=== PATIENT | female | born 1985 | race African-American/Black ===

== ENCOUNTER 2017-01-17 19:21 | Emergency (ER) | payer SELFPAY ==
[~2017-01-17 19:21] MED LIST: CLINDAMYCIN HC300 MG PO; COMPAZINE; FLORASTOR 33 MG1 CAP PO; PRENATAL VITAMI1 T10 PO; PRILOSEC; PRILOSEC40 MG PO
--- NOTE | 2017-01-17 19:45 | NUR ---
PATIENT LEFT WITHOUT BEING SEEN BY DR. GRAY. NO FURTHER CARE PROVIDED FOR PATIENT.
== END 2017-01-17 19:45 | disposition left against medical advice (07) ==
LOC: MED 19:21
DX: M79.89 Other specified soft tissue disorders (principal); Z53.21 Procedure and treatment not carried out due to patient leaving prior to being seen by health care provider

== ENCOUNTER 2017-04-30 09:09 | Emergency (ER) | payer OTHER ==
[~2017-04-30] VITALS: Ht 160 cm; Wt 50.1 kg
[~2017-04-30 09:09] MED LIST changes: -CLINDAMYCIN HC300 MG PO; -COMPAZINE; -FLORASTOR 33 MG1 CAP PO; +OMEP40EC1 PO; +PREN-385 PO; -PRENATAL VITAMI1 T10 PO; -PRILOSEC; -PRILOSEC40 MG PO
[2017-04-30 09:15] VITALS: BP 143/91
--- NOTE | 2017-04-30 09:20 | NUR ---
Patient ambulated to bed 7 with family. RN evaluating patient at bedside.
--- NOTE | 2017-04-30 09:24 | NUR ---
Dr. Walker evaluating patient at bedside.
[2017-04-30] MEDS ORDERED: MORPHINE SULFATE 2 MG/ML SYR IVP ONE (09:30)
[2017-04-30] MEDS ORDERED: ONDANSETRON 4 MG/2 ML VIAL IVP ONE (09:35)
[2017-04-30] MEDS ORDERED: LIDOCAINE VISCOUS 2% 20 ML UDC PO ONE (09:35)
[2017-04-30] MEDS ORDERED: DICYCLOMINE HCL LIQUID 10 MG/5 ML UDC PO ONE (09:35)
[2017-04-30] MEDS ORDERED: ALUMINUM HYD/MAG/SIMETHICONE 30 ML UDC PO ONE (09:35)
[2017-04-30 10:00] LABS: BASOPHILS # (AUTO) 0.2 K/uL (0.00-0.22); BASOPHILS % (AUTO) 2.2 % (0.0-2.0); EOSINOPHILS # (AUTO) 0.1 K/uL (0-0.4); EOSINOPHILS % (AUTO) 0.9 % (0.0-4.0); HEMATOCRIT 43.3 % (36-48); HEMOGLOBIN 14.4 g/dL (12.0-16.0); LYMPHOCYTES # (AUTO) 1.7 K/uL (2.5-16.5); MEAN CORPUSCULAR HEMOGLOBIN 32 pg (27-31); MEAN CORPUSCULAR HGB CONC 33 g/dL (33-37); MEAN CORPUSCULAR VOLUME 95 fL (80-94); MONOCYTES # (AUTO) 0.9 K/uL (0.8-1.0); MONOCYTES % (AUTO) 8.3 % (1.7-9.3); NEUTROPHILS # (AUTO) 8.1 K/uL (1.8-7.7); NEUTROPHILS % (AUTO) 73.6 % (42.2-75.2); PLATELET COUNT (AUTO) 133 K/uL (140-450); RED BLOOD CELL COUNT(AUTO) 4.58 MIL/uL (4.20-5.40); RED CELL DISTRIBUTION WIDTH 12.7 % (11.6-13.7)
--- NOTE | 2017-04-30 10:05 | NUR ---
Assumed care of patient; Patient BIB self c/o generalized abd pain x 4 days with n/v; Pt is A&O x 4, PERRLA; LS ARE CLEAR BILATERAL; RR ARE EVEN AND UNLABORED; NO ACUTE RESP DISTRESS NOTED; ABD IS SOFT AND TENDER TO ALL QUADRANTS; PT ALSO C/O N/V; PT DENIES ANY BLOOD IN EMESIS, THAT COLOR IS "WHAT I ATE OR CLEAR"; PT DENIES DIARRHEA; PT DENIES ANY URINARY COMPLAINTS; HOB POSITIONED TO COMFORT; PT PROVIDED WITH WARM BLANKET; SIGNIFICANT OTHER BY BEDSIDE; AWAITING LAB RESULTS; ALL NEEDS ADDRESSED AT THIS TIME; WILL CONTINUE TO MONITOR
--- NOTE | 2017-04-30 10:05 | NUR ---
PATIENT RESTLESS; CRYING; GUARDING STOMACH; MD AWARE; PAIN MEDS ORDERED
--- NOTE | 2017-04-30 10:06 | NUR ---
Pt requesting more pain medication prior to being taken to CT scan. Dr. Walker made aware.
[2017-04-30 10:09] LABS: APPEARANCE,URINE HAZY (CLEAR); BILIRUBIN,URINE NEGATIVE (NEGATIVE); BLOOD, URINE NEGATIVE (NEGATIVE); COLOR,URINE ORANGE (YELLOW); LEUKOCYTE ESTERASE ,URINE NEGATIVE (NEGATIVE); NITRITE, URINE NEGATIVE (NEGATIVE); PROTEIN,URINE TRACE (NEGATIVE); UGLUCOSE NEGATIVE (NEGATIVE)
[2017-04-30 10:10] LABS: CALCIUM 8.7 mg/dL (8.5-10.1); CREATININE 0.9 mg/dL (0.6-1.3)
[2017-04-30] MEDS ORDERED: HYDROmorphone 1 MG/ML AMP IVP ONE (10:10)
[2017-04-30 10:16] LABS: ALBUMIN 4.2 g/dL (3.4-5.0); TOTAL PROTEIN, SERUM 7.5 g/dL (6.4-8.2)
--- NOTE | 2017-04-30 10:18 | NUR ---
PT MEDIATED WITH PAIN MED PER MD ORDER; PT STATES "PAIN IS A LOT BETTER...READY FOR CT SCAN"; ALL ADDRESSED MET AT THIS TIME; WILL CONTINUE TO MONITOR
--- NOTE | 2017-04-30 10:38 | NUR ---
Pt taken to CT via rmario.
--- NOTE | 2017-04-30 10:54 | NUR ---
Pt back from CT scan and placed in bed 7.
--- NOTE | 2017-04-30 11:28 | NUR ---
Patient appears to be resting comfortably in bed. Vss. Respirations even and unlabored.
--- NOTE | 2017-04-30 12:25 | NUR ---
Dr. Walker re-evaluating patient at bedside.
[2017-04-30 12:31] VITALS: BP 120/71
--- NOTE | 2017-04-30 12:32 | NUR ---
Patient discharged with v/s stable. Written and verbal after care instructions given and explained. Patient alert, oriented and verbalized understanding of instructions. Ambulatory with steady gait. All questions addressed prior to discharge. ID band removed. Patient advised to follow up with PMD. Rx of NORCO LIQUID given. Patient educated on indication of medication including possible reaction and side effects. Opportunity to ask questions provided and answered.
== END 2017-04-30 12:32 | disposition home or self-care (01) ==
LOC: MED 09:09
DX: R10.84 Generalized abdominal pain (principal); R11.2 Nausea with vomiting, unspecified; K21.9 Gastro-esophageal reflux disease without esophagitis
CPT/HCPCS: 36415; 74176; 80053; 81003; 81025; 82150; 83690; 85025; 96374; 96375; 99285; J1170; J2270; J2405

== ENCOUNTER 2018-03-12 18:25 | Observation (INO) | payer OTHER ==
[~2018-03-12] VITALS: Ht 162.6 cm; Wt 78.0 kg
== END 2018-03-12 21:30 | disposition home or self-care (01) ==
LOC: MLD 18:25
PROVIDERS: ADMIT Obstetrics & Gynecology; ATTEND Obstetrics & Gynecology
DX: O36.8130 Decreased fetal movements, third trimester, not applicable or unspecified (principal); Z3A.31 31 weeks gestation of pregnancy
CPT/HCPCS: 76819; 81000; G0378; Q0092

== ENCOUNTER 2019-04-01 15:13 | Emergency (ER) | payer OTHER ==
[~2019-04-01] VITALS: Ht 162.6 cm; Wt 59.9 kg
[2019-04-01 15:23] VITALS: BP 113/71
--- NOTE | 2019-04-01 16:15 | NUR ---
PT BIB FAMILY C/O LEFT FOOT PAIN FROM LEFT PINKY TOE TO LEFT MIDDLE TOE. PT DENIES N/V/D; SKIN IS INTACT, PINK/WARM/DRY; AAOX4, PERRL, UNSTEADY GAIT S/P PAIN; LUNGS CLEAR BL, BREATHING UNLABORED; HR EVEN AND REGULAR, BL PERIPHERAL PULSES PRESENT; BS ACTIVE X4, NO TENDERNESS TO PALPATION. PT DENIES ANY FEVER, CP, SOB, OR COUGH AT THIS TIME; PT STATES 2/10 PAIN AT THIS TIME; VSS; PATIENT POSITIONED FOR COMFORT; HOB ELEVATED; BEDRAILS UP X2; BED DOWN.
[2019-04-01] MEDS ORDERED: traMADol 50 MG TAB PO ONE (16:30)
[2019-04-01 17:37] VITALS: BP 111/69
--- NOTE | 2019-04-01 17:39 | NUR ---
Patient discharged with v/s stable. Written and verbal after care instructions given and explained. Patient alert, oriented and verbalized understanding of instructions. Wheel Chair Assisted with to car. All questions addressed prior to discharge. ID band removed. Patient advised to follow up with PMD. Rx of Tramadol given. Patient educated on indication of medication including possible reaction and side effects. Opportunity to ask questions provided and answered.
== END 2019-04-01 17:39 | disposition home or self-care (01) ==
LOC: MED 15:13
DX: S52.592A Other fractures of lower end of left radius, initial encounter for closed fracture (principal); K21.9 Gastro-esophageal reflux disease without esophagitis; Z79.899 Other long term (current) drug therapy; X50.1XXA Overexertion from prolonged static or awkward postures, initial encounter; Y93.89 Activity, other specified; Y92.830 Public park as the place of occurrence of the external cause; Y99.8 Other external cause status
CPT/HCPCS: 73630; 99283; Q0092

== ENCOUNTER 2019-10-22 07:53 | Emergency (ER) | payer OTHER ==
[~2019-10-22] VITALS: Ht 165.1 cm; Wt 63.5 kg
[~2019-10-22 07:53] MED LIST changes: -OMEP40EC1 PO; +OMEP40EC24 PO
[2019-10-22 08:04] VITALS: BP 97/66
--- NOTE | 2019-10-22 08:24 | NUR ---
34/F presents to ED with complaints of right hand pain since last night. Denies any injury or trauma. Pt c/o sudden onset of pain, 05/12.
[2019-10-22] MEDS ORDERED: ACETAMINOPHEN 325 MG TAB PO ONE (09:30)
[2019-10-22 09:50] VITALS: BP 97/66
--- NOTE | 2019-10-22 09:50 | NUR ---
Patient discharged with v/s stable. Written and verbal after care instructions given and explained. Patient verbalized understanding. Ambulatory with steady gait. All questions addressed prior to discharge. Advised to follow up with PMD.
== END 2019-10-22 09:50 | disposition home or self-care (01) ==
LOC: MED 07:53
DX: S62.001A Unspecified fracture of navicular [scaphoid] bone of right wrist, initial encounter for closed fracture (principal); K21.9 Gastro-esophageal reflux disease without esophagitis; Z79.899 Other long term (current) drug therapy; W19.XXXA Unspecified fall, initial encounter; Y93.01 Activity, walking, marching and hiking; Y92.89 Other specified places as the place of occurrence of the external cause; Y99.8 Other external cause status
CPT/HCPCS: 73130; 99283

== ENCOUNTER 2020-03-22 10:14 | Emergency (ER) | payer OTHER ==
[~2020-03-22] VITALS: Ht 165.1 cm; Wt 61.7 kg
--- NOTE | 2020-03-22 10:21 | NUR ---
Patient ambulated to bed 7. RN evaluating patient at bedside.
[2020-03-22 10:22] VITALS: BP 108/70
[2020-03-22] MEDS ORDERED: IBUPROFEN 800 MG TAB PO ONE (10:45)
--- NOTE | 2020-03-22 10:47 | NUR ---
PT IS BEING TAKEN TO XRAY VIA .
--- NOTE | 2020-03-22 11:00 | NUR ---
PT IS BACK FROM XRAY. REPORTS A0 MISCARRIAGE 1. Addendum: 03/22/20 at 1116 by MED PT WAS DOUBLE SHIELD ON THE ABDOMEN DURING XRAY, PER [employer]TEGRATED CAMPAIGN MANAGER.
[2020-03-22 11:20] LABS: BASOPHILS % (AUTO) 0.5 % (0.0-2.0); EOSINOPHILS % (AUTO) 0.5 % (0.0-4.0); HEMATOCRIT 40.7 % (36-48); HEMOGLOBIN 13.4 g/dL (12.0-16.0); LYMPHOCYTES % (AUTO) 11.1 % (20.5-51.1); MEAN CORPUSCULAR HEMOGLOBIN 33 pg (27-31); MEAN CORPUSCULAR HGB CONC 33 g/dL (33-37); MEAN CORPUSCULAR VOLUME 99.6 fL (80-94); MONOCYTES # (AUTO) 0.7 K/uL (0.8-1.0); MONOCYTES % (AUTO) 8.4 % (1.7-9.3); NEUTROPHILS # (AUTO) 6.9 K/uL (1.8-7.7); NEUTROPHILS % (AUTO) 79.5 % (42.2-75.2); PLATELET COUNT (AUTO) 169 K/uL (140-450); RED BLOOD CELL COUNT(AUTO) 4.08 MIL/uL (4.20-5.40); RED CELL DISTRIBUTION WIDTH 13.6 % (11.6-13.7); WHITE BLOOD COUNT (AUTO) 8.7 K/uL (4.8-10.8)
--- NOTE | 2020-03-22 11:27 | NUR ---
US IS AT BEDSIDE.
[2020-03-22 11:34] LABS: CARBON DIOXIDE 21.7 mmol/L (21-32); CREATININE 0.7 mg/dL (0.6-1.3); POTASSIUM 3.7 mmol/L (3.5-5.1)
[2020-03-22 12:29] LABS: APPEARANCE,URINE HAZY (CLEAR); COLOR,URINE YELLOW (YELLOW)
[2020-03-22 12:30] LABS: BILIRUBIN,URINE NEGATIVE (NEGATIVE); BLOOD, URINE NEGATIVE (NEGATIVE); LEUKOCYTE ESTERASE ,URINE 1+ (NEGATIVE); NITRITE, URINE NEGATIVE (NEGATIVE); UGLUCOSE NEGATIVE (NEGATIVE)
[2020-03-22 12:31] LABS: RBC,URINE NONE SEEN /HPF (0-5); WBC,URINE 0-5 /HPF (0-5)
--- NOTE | 2020-03-22 13:15 | NUR ---
PT PLACED IN RIGHT SHOULDER SLING, SLING ADJ. TO PT SIZE
--- NOTE | 2020-03-22 13:20 | NUR ---
Verbal order received to order food for patient. Patient advised we are waiting for labs so they can release the Rhogam. Patient verbalized understanding. Patient resting comfortably in bed, talking on her cell phone.
--- NOTE | 2020-03-22 13:52 | NUR ---
Food provided to patient.
--- NOTE | 2020-03-22 13:54 | NUR ---
Lab reports another 1 hour until Rhogam in ready and available. Dr. Austin made aware.
--- NOTE | 2020-03-22 13:59 | NUR ---
Patient reports she does not want to wait for Rhogam shot. I spoke with Dr. Austin. Patient advised that she needs to get the shot but she can follow up with OBGYN and get the shot. Pt states "I'll get the shot with my doctor." I made Dr. Austin made aware that patient does not want to wait any longer and she will follow up. Dr. Austin will write up discharge paperwork for patient to go home.
[2020-03-22 14:07] VITALS: BP 117/79
--- NOTE | 2020-03-22 14:07 | NUR ---
Patient discharged with v/s stable. Written and verbal after care instructions given and explained. Patient alert, oriented and verbalized understanding of instructions. Ambulatory with steady gait. All questions addressed prior to discharge. ID band removed. Patient advised to follow up with OBGYN. Rx of Motrin 800mg given. Patient educated on indication of medication including possible reaction and side effects. Opportunity to ask questions provided and answered.
== END 2020-03-22 14:07 | disposition home or self-care (01) ==
LOC: MED 10:14
DX: O9A.211 Injury, poisoning and certain other consequences of external causes complicating pregnancy, first trimester (principal); K21.9 Gastro-esophageal reflux disease without esophagitis; Z79.899 Other long term (current) drug therapy; Z34.00 Encounter for supervision of normal first pregnancy, unspecified trimester; Z3A.01 Less than 8 weeks gestation of pregnancy; V49.88XA Car occupant (driver) (passenger) injured in other specified transport accidents, initial encounter; Y93.89 Activity, other specified; Y92.89 Other specified places as the place of occurrence of the external cause; Y99.8 Other external cause status
CPT/HCPCS: 36415; 73030; 76801; 80048; 81001; 81025; 84702; 85025; 86886; 86900; 86901; 87086; 99284; Q0092; 99285

== ENCOUNTER 2020-12-10 08:36 | Emergency (ER) | payer OTHER ==
[~2020-12-10] VITALS: Ht 162.6 cm; Wt 75.3 kg
[2020-12-10 08:40] VITALS: BP 128/90
--- NOTE | 2020-12-10 08:53 | NUR ---
35 Y/O F C/O RIGHT ARM PAIN S/P VAGINAL DELIVERY 10 DAYS AGO, UNCOMPLICATED. PATIENT DENIES ANY RECENT TRAUMA TO ARM. STATES SHE HAS HAD RIGHT SHOULDER PAIN IN THE PAST, BUT PAIN IS NOW AT A 10/10, SHARP IN CHARACTER AND PATIENT WAS PRESCRIBED FLEXERIL AND IBUPROFEN, WHICH HAVE NOT BEEN EFFECTIVE. NO OBVIOUS DEFORMITY NOTED.
[2020-12-10] MEDS ORDERED: KETOROLAC 60 MG/2 ML VIAL IM ONE (08:55)
--- NOTE | 2020-12-10 09:02 | NUR ---
PT TAKEN TO XRAY AT THIS TIME
[2020-12-10] MEDS ORDERED: TRAM50TA3 PO (09:23)
[2020-12-10 09:34] VITALS: BP 128/90
== END 2020-12-10 09:35 | disposition home or self-care (01) ==
LOC: MED 08:36
DX: S46.911A Strain of unspecified muscle, fascia and tendon at shoulder and upper arm level, right arm, initial encounter (principal); R03.0 Elevated blood-pressure reading, without diagnosis of hypertension; K21.9 Gastro-esophageal reflux disease without esophagitis; Z79.899 Other long term (current) drug therapy; X58.XXXA Exposure to other specified factors, initial encounter; Y93.89 Activity, other specified; Y92.89 Other specified places as the place of occurrence of the external cause; Y99.8 Other external cause status
CPT/HCPCS: 73030; 96372; 99283; J1885

== ENCOUNTER 2021-06-03 08:43 | Emergency (ER) | payer OTHER ==
[~2021-06-03] VITALS: Ht 162.6 cm; Wt 74.4 kg
[~2021-06-03 08:43] MED LIST changes: +TRAM50TA3 PO
[2021-06-03 08:54] VITALS: BP 118/74
--- NOTE | 2021-06-03 09:01 | NUR ---
PT AMBULATED TO ER BED 4 WITH A STEADY GAIT.
--- NOTE | 2021-06-03 09:07 | NUR ---
36 Y/O FEMALE C/O TOE PAIN 07/12 DESCRIBES SHARP TO RIGHT FOOT, 3RD DIGIT X2DAY NON-RADIATING. PT STATES SWELLING NOTED S/P INJURY AT HOME WHILE TRIPPING ON BOXES X2DAYS. NO RX TAKEN PRIOR TO ARRIVAL. DENIES N/V, DENIES FEVER/CHILLS. DENIES PMH NKA
--- NOTE | 2021-06-03 09:53 | NUR ---
DR. MOONEY AT PT BEDSIDE FOR FURTHER EVALUATION.
[2021-06-03] MEDS ORDERED: KETOROLAC 30 MG/ML VIAL IM ONE (09:55)
--- NOTE | 2021-06-03 10:02 | NUR ---
PT TAKEN TO XR VIA W/C.
--- NOTE | 2021-06-03 10:14 | NUR ---
PT W/C ASSISTED TO ER BED 4.
--- NOTE | 2021-06-03 11:19 | NUR ---
Patient discharged with v/s stable. Written and verbal after care instructions given TOE FRACTURE and explained. Patient verbalized understanding. Ambulatory with steady gait. All questions addressed prior to discharge. Advised to follow up with PMD.
[2021-06-03 11:22] VITALS: BP 116/72
== END 2021-06-03 11:19 | disposition home or self-care (01) ==
LOC: MED 08:43
DX: S92.511A Displaced fracture of proximal phalanx of right lesser toe(s), initial encounter for closed fracture (principal); K21.9 Gastro-esophageal reflux disease without esophagitis; Z79.899 Other long term (current) drug therapy; W22.8XXA Striking against or struck by other objects, initial encounter; Y93.89 Activity, other specified; Y92.89 Other specified places as the place of occurrence of the external cause; Y99.8 Other external cause status
CPT/HCPCS: 29515; 73630; 96372; 99283; J1885

== ENCOUNTER 2021-07-11 09:01 | Emergency (ER) | payer OTHER ==
[~2021-07-11] VITALS: Ht 162.6 cm; Wt 68.0 kg
[2021-07-11 09:06] VITALS: BP 129/86
--- NOTE | 2021-07-11 09:11 | NUR ---
AMBULATED TO BED
[2021-07-11] MEDS ORDERED: CARBAMIDE PEROXIDE 6.5% OT 15 ML BTL OT ONE (09:25)
--- NOTE | 2021-07-11 09:25 | NUR ---
36/F PRESENTS TO ED WITH C/O LEFT EAR PAIN X3 WEEKS. PATIENT STATES SHE WENT SWIMMING ONE MONTH AGO AND BEGAN HAVING WORSENING LEFT EAR PAIN AFTER. REPORTS USING OTC EAR DROPS AND ATTEMPTED TO IRRIGATE HER EAR AT HOME BUT STATES SHE HAS NOT EXPERIENCED RELIEF. DENIES TAKING ANYTHING FOR PAIN, REPORTS 8/10 THROBBING PAIN. DENIES CP, SOB, FEVER, CHILLS, DIZZINESS.
[2021-07-11] MEDS ORDERED: OFLO5SOL27 LEFT EAR (10:24)
--- NOTE | 2021-07-11 10:32 | NUR ---
PER ERMD PT EAR WAS FLUSHED AND CLEANED VIA ANESTHESIOLOGIST.
[2021-07-11 10:43] VITALS: BP 129/86
--- NOTE | 2021-07-11 10:44 | NUR ---
Patient discharged with v/s stable. Written and verbal after care instructions given and explained ABOUT OTITIS EXTERNA. Patient alert, oriented and verbalized understanding of instructions. Ambulatory with steady gait. All questions addressed prior to discharge. ID band removed. Patient advised to follow up with PMD. Rx of FLOXIN OT given. Patient educated on indication of medication including possible reaction and side effects. Opportunity to ask questions provided and answered.
== END 2021-07-11 10:44 | disposition home or self-care (01) ==
LOC: MED 09:01
DX: H60.92 Unspecified otitis externa, left ear (principal); K21.9 Gastro-esophageal reflux disease without esophagitis; Z79.899 Other long term (current) drug therapy
CPT/HCPCS: 99283

== ENCOUNTER 2022-12-17 12:05 | Emergency (ER) | payer OTHER ==
[~2022-12-17] VITALS: Ht 165.1 cm; Wt 65.8 kg
[~2022-12-17 12:05] MED LIST changes: +OFLO5SOL27 LEFT EAR
[2022-12-17 12:21] VITALS: BP 133/87
--- NOTE | 2022-12-17 13:00 | NUR ---
37 Y/O FEMALE BIB SELF C/O RIGHT PEVIS PAIN ,RADIATING TO THE RIGHT THIGH AND KNEE PAIN, WITH LEFT SHOULDER PAIN S/P FALL YESTERDAY. DENIES HITTING HEAD, DENIES PASSING OUT. DENIES ANY MEDICATION FOR PAIN NKA PMH: DENIES
[2022-12-17] MEDS ORDERED: KETOROLAC 30 MG/ML VIAL IM ONE (13:45)
[2022-12-17] MEDS ORDERED: IBUP-2213 PO (15:20)
[2022-12-17] MEDS ORDERED: TRAM-748 PO (15:20)
[2022-12-17 15:37] VITALS: BP 128/87
--- NOTE | 2022-12-17 15:37 | NUR ---
Patient discharged with v/s stable. Written and verbal after care instructions FOR HIP PAIN AND CONTUSION given and explained. Patient alert, oriented and verbalized understanding of instructions. Amb USING CRUTCHES. All questions addressed prior to discharge. ID band removed. Patient advised to follow up with PMD. Rx of ULTRAM AND IBUPROFEN given. Opportunity to ask questions provided and answered.
== END 2022-12-17 15:37 | disposition home or self-care (01) ==
LOC: MED 12:05
DX: S46.812A Strain of other muscles, fascia and tendons at shoulder and upper arm level, left arm, initial encounter (principal); S80.01XA Contusion of right knee, initial encounter; S70.01XA Contusion of right hip, initial encounter; K21.9 Gastro-esophageal reflux disease without esophagitis; Z79.899 Other long term (current) drug therapy; W18.30XA Fall on same level, unspecified, initial encounter; Y93.89 Activity, other specified; Y92.89 Other specified places as the place of occurrence of the external cause; Y99.8 Other external cause status
CPT/HCPCS: 73030; 73502; 73562; 96372; 99284; J1885

== ENCOUNTER 2024-04-24 14:04 | Emergency (ER) | payer OTHER ==
[~2024-04-24] VITALS: Ht 162.6 cm; Wt 65.8 kg
[~2024-04-24 14:04] MED LIST changes: +IBUP-2213 PO; +TRAM-748 PO
[2024-04-24 14:12] VITALS: BP 110/69; PULSE 97; RESP 24; TEMP 98.3; O2SAT 97
[2024-04-24] MEDS ORDERED: ACET-10509 PO (17:09)
[2024-04-24] MEDS ORDERED: ACETAMINOPHEN 325 MG TAB ONE (17:34)
[2024-04-24] MEDS: ACETAMINOPHEN 325 MG TAB PO ONE (17:39)
[2024-04-24] MEDS: BACITRACIN OINT 500 UNITS/GM PKT TP ONE (17:41)
[2024-04-24] MEDS: LIDOCAINE/EPI 1% 1:100000 20 ML VIAL INJ ONE (17:41)
[2024-04-24 17:54] VITALS: BP 111/68; PULSE 88; RESP 16; TEMP 98.3; O2SAT 97
== END 2024-04-24 17:55 | disposition home or self-care (01) ==
LOC: MED 14:04
DX: O99.711 Diseases of the skin and subcutaneous tissue complicating pregnancy, first trimester (principal); S01.81XA Laceration without foreign body of other part of head, initial encounter; S43.401A Unspecified sprain of right shoulder joint, initial encounter; S09.90XA Unspecified injury of head, initial encounter; Z3A.14 14 weeks gestation of pregnancy; Z79.1 Long term (current) use of non-steroidal anti-inflammatories (NSAID); Z79.2 Long term (current) use of antibiotics; Z79.899 Other long term (current) drug therapy; W18.39XA Other fall on same level, initial encounter; Y93.89 Activity, other specified; Y92.89 Other specified places as the place of occurrence of the external cause; Y99.8 Other external cause status
CPT/HCPCS: 12013; 70450; 72125; 73030; 81025; 99284; J2001; Q0092